=== PATIENT | male | born 1980 | race Caucasian/White ===

== ENCOUNTER 2021-06-02 11:52 | Inpatient (IN) ==
[2021-06-02 14:13] LABS: Basophils % 0.2 %; Eosinophils # 0.1 K/mcL (0.0-0.6); Eosinophils % 1.1 %; Hematocrit 46.3 % (37.5-50.1); Hemoglobin 14.8 g/dL (12.9-16.9); Immature Granulocytes % 0.4 % (0-4); Lymphocytes # 1.3 K/mcL (0.6-4.6); Lymphocytes % 10.7 %; Mean Corpuscular Volume 93.7 fL (83.0-100.0); Mean Platelet Volume 9.3 fL (9.4-12.4); Monocytes % 7.7 %; Neutrophils # 9.8 K/mcL (1.6-8.9); Platelet Count 217 K/mcL (140-400); Red Blood Count 4.94 M/mcL (4.19-5.50); Segmented Neutrophils % 79.9 %; White Blood Count 12.3 K/mcL (4.3-11.1)
[2021-06-02 14:20] LABS: INR 1.2; Prothrombin Time 13.2 Seconds (9.4-12.1)
[2021-06-02 14:23] LABS: Activated Partial Thrombo Time 31.8 Seconds (26.0-36.0)
[2021-06-02] MEDS ORDERED: 0.9 % Sodium Chloride 1,000 ML IVC ONE (14:26)
[2021-06-02 14:28] LABS: BUN/Creatinine Ratio 6 (6-26); Blood Urea Nitrogen 10 mg/dL (6-20); Calcium 9.8 mg/dL (8.6-10.3); Carbon Dioxide 26 mEq/L (23-29); Chloride 100 mEq/L (98-107); Glucose 96 mg/dL (70-105); Osmolality,Calculated 277 (280-300); Potassium 4.9 mEq/L (3.5-5.1); Sodium 134 mEq/L (136-145); Troponin I 0.03 ng/mL (< 0.04); eGFR For African Americans 55 (> 60); eGFR For Non-African Americans 46 (> 60)
[2021-06-02 14:45] LABS: Acetaminophen < 10 mcg/mL (10-20); Chol/HDL Ratio 4.3 (0-4.9); Cholesterol 136 mg/dL (< 200); Ethanol < 10 mg/dL (Less than 10); HDL Cholesterol 32 mg/dL (40-59); LDL Cholesterol,Calculated 87 mg/dL (< 100); Salicylate < 2.5 mg/dL (15.0-30.0); Triglycerides 87 mg/dL (< 150)
[2021-06-02] MEDS ORDERED: Naloxone 0.4 MG/ML INJ IVP ONE ×2 (14:50→15:04)
[2021-06-02 14:57] LABS: Influenza A PCR Negative (Negative); Influenza B PCR Negative (Negative); Resp. Syncytial Virus PCR Negative (Negative)
[2021-06-02 15:17] LABS: SARS-CoV-2 by PCR (In House) Negative (Negative)
[2021-06-02] MEDS ORDERED: levoFLOXacin 750 MG/150 ML 750 MG/150 ML BAG IVPB ONE (16:08)
[2021-06-02] MEDS ORDERED: Mag Hydrox/Al Hydrox/Simeth 30 ML UDC PO PRN (16:37)
[2021-06-02] MEDS ORDERED: Melatonin 3 MG TABLET PO PRN (16:37)
[2021-06-02] MEDS ORDERED: Naloxone 0.4 MG/ML INJ IVP PRN (16:37)
[2021-06-02] MEDS ORDERED: Acetaminophen 325 MG TABLET PO PRN (16:37)
[2021-06-02] MEDS ORDERED: Ondansetron 4 MG/2 ML VIAL IVP PRN (16:37)
[2021-06-02] MEDS ORDERED: Ringers Solution, Lactated 1,000 ML IVC ONE (16:39)
[2021-06-02] MEDS ORDERED: Ampicillin/Sulbactam 3,000 MG in 0.9 % Sodium Chloride Mini Bag 100 ML IVPB SCH (18:00)
[2021-06-02] MEDS ORDERED: QUEtiapine Fumarate 25 MG TABLET PO PRN (20:03)
[2021-06-02] MEDS ORDERED: Ipratropium/Albuterol Neb 3 ML IH PRN (20:03)
[2021-06-02 20:39] LABS: Estimated Average Glucose 111 mg/dl; Hemoglobin A1C 5.5 %
[2021-06-02] MEDS: MetroNIDAZOLE 500 MG/100 ML 500 MG/100 ML BAG IVPB SCH (21:18)
[2021-06-02] MEDS: *HR* Heparin 5,000 UNIT/ML VIAL SQ SCH (21:18)
[2021-06-02 23:42] LABS: Amphetamine Screen,Urine Positive ng/mL (Cutoff=1000); Barbiturate Screen,Urine Negative ng/mL (Cutoff=200); Benzodiazepines Screen,Urine Positive ng/mL (Cutoff=200); Cannabinoid Screen,Urine Positive ng/mL (Cutoff = 50); Cocaine Screen,Urine Negative ng/mL (Cutoff= 300); Opiate Screen,Urine Negative ng/mL (Cutoff=300); Phencyclidine Screen,Urine Negative ng/mL (Cutoff=25)
[2021-06-03 01:12] LABS: Basophils % 0.2 %; Eosinophils # 0.3 K/mcL (0.0-0.6); Eosinophils % 2.3 %; Hematocrit 41.1 % (37.5-50.1); Lymphocytes # 1.9 K/mcL (0.6-4.6); Mean Corpuscular HGB Conc 31.6 g/dL (31.6-35.5); Mean Corpuscular Hemoglobin 29.3 pg (28.0-33.3); Mean Corpuscular Volume 92.8 fL (83.0-100.0); Mean Platelet Volume 9.1 fL (9.4-12.4); Monocytes # 0.8 K/mcL (0.0-1.3); Monocytes % 6.3 %; Platelet Count 156 K/mcL (140-400); Red Blood Count 4.43 M/mcL (4.19-5.50); Red Cell Distribution Width 14.7 % (11.5-14.5); Segmented Neutrophils % 74.2 %; White Blood Count 12.2 K/mcL (4.3-11.1)
[2021-06-03 01:29] LABS: BUN/Creatinine Ratio 11 (6-26); Blood Urea Nitrogen 12 mg/dL (6-20); Carbon Dioxide 28 mEq/L (23-29); Chloride 102 mEq/L (98-107); Glucose 91 mg/dL (70-105); Magnesium 1.6 mg/dL (1.6-2.6); Osmolality,Calculated 279 (280-300); Phosphorous 3.5 mg/dL (2.7-4.5); Sodium 135 mEq/L (136-145); eGFR For African Americans > 60 (> 60); eGFR For Non-African Americans > 60 (> 60)
[2021-06-03] MEDS: MetroNIDAZOLE 500 MG/100 ML 500 MG/100 ML BAG IVPB SCH ×4 (02:57→21:51)
[2021-06-03] MEDS: *HR* Heparin 5,000 UNIT/ML VIAL SQ SCH ×3 (04:59→21:51)
[2021-06-03] MEDS ORDERED: [UNRECOGNIZED DRUG - OTHER] IM SCH (09:15)
[2021-06-03] MEDS ORDERED: TESTOSTERONE CYPIONATE 200 MG/ML IM SCH (09:15)
[2021-06-03] MEDS: diazePAM 5 MG TABLET PO SCH ×3 (09:39→21:50)
[2021-06-03] MEDS: levoFLOXacin 750 MG/150 ML 750 MG/150 ML BAG IVPB SCH (09:40)
[2021-06-03] MEDS: Gabapentin 300 MG CAPSULE PO SCH ×2 (15:30→21:50)
[2021-06-03] MEDS ORDERED: QUEtiapine Fumarate 300 MG TABLET PO SCH (21:00)
[2021-06-03] MEDS: lamoTRIgine 25 MG TABLET PO SCH (21:50)
[2021-06-04] MEDS: MetroNIDAZOLE 500 MG/100 ML 500 MG/100 ML BAG IVPB SCH (04:29)
[2021-06-04] MEDS: *HR* Heparin 5,000 UNIT/ML VIAL SQ SCH (06:11)
[2021-06-04 07:13] LABS: Hematocrit 39.6 % (37.5-50.1); Mean Corpuscular HGB Conc 32.8 g/dL (31.6-35.5); Mean Corpuscular Volume 91.2 fL (83.0-100.0); Mean Platelet Volume 9.6 fL (9.4-12.4); Platelet Count 178 K/mcL (140-400); Red Blood Count 4.34 M/mcL (4.19-5.50); Red Cell Distribution Width 14.5 % (11.5-14.5); White Blood Count 6.9 K/mcL (4.3-11.1)
[2021-06-04 07:32] LABS: BUN/Creatinine Ratio 11 (6-26); Blood Urea Nitrogen 10 mg/dL (6-20); Calcium 9.3 mg/dL (8.6-10.3); Carbon Dioxide 28 mEq/L (23-29); Chloride 102 mEq/L (98-107); Glucose 101 mg/dL (70-105); Osmolality,Calculated 283 (280-300); Sodium 137 mEq/L (136-145); eGFR For African Americans > 60 (> 60); eGFR For Non-African Americans > 60 (> 60)
[2021-06-04] MEDS: levoFLOXacin 750 MG/150 ML 750 MG/150 ML BAG IVPB SCH (07:57)
[2021-06-04] MEDS: lamoTRIgine 25 MG TABLET PO SCH (07:58)
[2021-06-04] MEDS: Gabapentin 300 MG CAPSULE PO SCH (07:58)
[2021-06-04] MEDS: diazePAM 5 MG TABLET PO SCH (07:58)
[2021-06-04 10:46] VITALS: BP 111/74; PULSE 76; TEMP 97.5; O2SAT 94
== END 2021-06-04 13:38 | disposition home or self-care (01) | DRG 812 ==
LOC: EMEROOARM 11:52 → 3ANU 11:52
PROVIDERS: ADMIT Internal Medicine; ATTEND Internal Medicine